=== PATIENT | female | born 1980 | race Caucasian/White ===

== ENCOUNTER 2017-08-25 09:30 | Inpatient (IN) | payer OTHER ==
[2017-09-21 08:03] VITALS: BMI 41.0
[2017-09-21] MEDS ORDERED: CITRIC ACID/SODIUM CITRATE 30 ML UNIT-DOSE CUP PO ONE (08:41)
[2017-09-21] MEDS ORDERED: ELECTROLYTE-148 SOLN 1,000 ML IV SCH (08:45)
--- NOTE | 2017-09-21 08:48 | HP ---
Past Medical History - Primary Care Physician PCP:: Jonas Brewster - Admission Chief Complaint: 39 weeks, previous c/s, sterlization.AMA, obesity History of Present Illness: 36 yo f , 39 weeks, with previous c/s, , request of repeat c/s, and tubal ligation , risks of repeat c/s discussed with patient, aware BTL is permenant and not reversiable, has small failure risks and risks of ectopics, ulternatives explained History Source: Patient Limitations to Obtaining History: No Limitations - Past Medical History ...: 2 ...Para: 1 ...Term: 1 ...: 0 ...Spon : 0 ...Induced : 0 ...Multiple Gestation: 0 ...EDC by Sono: 09/28/17 - Past Surgical History Past Surgical History: Yes: Hx Myomectomy: No Hx Transabdominal Cerclage: No - Smoking History Smoking history: Never smoked Have you smoked in the past 12 months: No - Alcohol/Substance Use Hx Alcohol Use: No - Social History Usual Living Arrangement: Yes: With Spouse History of Recent Travel: No Home Medications - Allergies Allergies/Adverse Reactions: Allergies Allergy/AdvReac Type Severity Reaction Status Date / Time No Known Allergies Allergy Verified 09/21/17 07:48 - Home Medications Home Medications: Ambulatory Orders Vitamins (Sjr) - 1 tab PO DAILY 03/27/13 Ferrous Sulfate [Feosol] 325 mg PO TID 09/21/17 Review of Systems - Review of Systems Constitutional: reports: No Symptoms Eyes: reports: No Symptoms HENT: reports: No Symptoms Neck: reports: No Symptoms Cardiovascular: reports: No Symptoms Respiratory: reports: No Symptoms Gastrointestinal: reports: No Symptoms Genitourinary: reports: No Symptoms Breasts: reports: No Symptoms Reported Musculoskeletal: reports: No Symptoms Integumentary: reports: No Symptoms Neurological: reports: No Symptoms Endocrine: reports: No Symptoms Hematology/Lymphatic: reports: No Symptoms Psychiatric: reports: No Symptoms Physical Exam - Maternity Vital Signs: Vital Signs Temperature 97.8 F 09/21/17 07:30 Pulse Rate 73 09/21/17 07:30 Respiratory Rate 20 09/21/17 07:30 Blood Pressure 138/77 09/21/17 07:30 O2 Sat by Pulse Oximetry (%) Constitutional: Yes: Well Nourished, No Distress, Calm Eyes: Yes: WNL, Conjunctiva Clear, EOM Intact HENT: Yes: WNL, Atraumatic, Normocephalic Neck: Yes: WNL, Supple, Trachea Midline Cardiovascular: Yes: WNL, Regular Rate and Rhythm Breast(s): Yes: WNL - Abdominal Exam/OB Fundal Height: 40 Number of Fetuses: Single Presentation: Vertex Contractions: No Intensity: Unaware Monitor Mode: External Heart Rate Location: [facility] Category: I Accelerations: Uniform Decelerations: None - Vaginal Exam/OB Vaginal Bleediing: No Speculum Exam: No Dilatation (cm): closed Effacement (%): 0 Amniotic Membrane Status: Intact Presentation: Vertex/Position Station: -3 - Physical Exam Musculoskeletal: Yes: WNL Extremities: Yes: WNL Edema: LLE: Trace, RLE: Trace Deep Tendon Reflex Grade: Normal +2 Psychiatric: Yes: WNL Hemorrhage Risk Assessment - Risk Factors Medium Risk Factors: Yes: None High Risk Factors: Yes: None Risk Score: 1 Risk Level: Medium Risk Problem List - Problems (1) with 39 completed weeks gestation Code(s): Z3A.39 - 39 WEEKS GESTATION OF (2) Previous section Code(s): Z98.891 - HISTORY OF UTERINE SCAR FROM PREVIOUS SURGERY (3) Obesity (BMI 35.0-39.9 without comorbidity) Code(s): E66.9 - OBESITY, UNSPECIFIED (4) Sterilization Code(s): Z30.2 - ENCOUNTER FOR STERILIZATION Assessment/Plan repeat c/s and tubal ligation. rba discussed
[2017-09-21] MEDS ORDERED: morphine SULFATE/Preservative Free 0.5 MG/ML (1cc Syringe) ONE (08:53)
[2017-09-21] MEDS ORDERED: EPINEPHrine/PF 1 MG/1 ML (1:1,000) AMPULE ONE (09:07)
[2017-09-21] MEDS ORDERED: ONDANSETRON 4 MG/2 ML VIAL IVPUSH PRN (09:21)
[2017-09-21] MEDS ORDERED: IBUPROFEN 600 MG TABLET (FP) PO PRN (09:21)
[2017-09-21] MEDS ORDERED: OXYTOCIN 10 UNITS/ML VIAL ONE ×2 (09:32→09:33)
[2017-09-21] MEDS ORDERED: ceFAZolin SODIUM 1 GM VIAL ONE ×3 (09:32→17:07)
[2017-09-21] MEDS ORDERED: OXYTOCIN 20 UNITS in 0.9% NS 40 UNIT/2,000 ML INFUS.BAG IV ONE (09:52)
[2017-09-21] MEDS ORDERED: ENOXAPARIN NA (PORCINE) 40 MG/0.4 ML DISP.SYRIN SQ SCH (10:00)
[2017-09-21] MEDS ORDERED: IBUPROFEN 800 MG/8 ML IJ IVPB PRN (10:13)
[2017-09-21] MEDS ORDERED: BENZOCAINE 28 GM HEMORRHOIDAL OINTMENT PR PRN (10:13)
[2017-09-21] MEDS ORDERED: WITCH HAZEL 50% (TUCKS) 40 PAD/JAR PAD TP PRN (10:13)
[2017-09-21] MEDS ORDERED: BENZOCAINE 20% 57 GM BOTTLE TP PRN (10:13)
[2017-09-21] MEDS ORDERED: diphenhydrAMINE HCL 25 MG CAPSULE (FP) PO PRN (10:13)
[2017-09-21] MEDS ORDERED: METHYLERGONOVINE MALEATE 0.2 MG/1 ML AMP IM PRN (10:13)
[2017-09-21] MEDS ORDERED: DEXTROSE 5%-LACTATED RINGERS 1,000 ML IV SCH (10:15)
[2017-09-21] MEDS ORDERED: OXYTOCIN 20 UNITS in 0.9% NS 20 UNIT/1,000 ML INFUS.BAG IV SCH (10:15)
[2017-09-21] MEDS ORDERED: ONDANSETRON 4 MG/2 ML VIAL ONE (11:58)
--- NOTE | 2017-09-21 12:16 | OP ---
DATE OF OPERATION: 09/21/2017 PREOPERATIVE DIAGNOSES: at 39 weeks. Previous section. Voluntary sterilization. Request of repeat section and tubal ligation. POSTOPERATIVE DIAGNOSES: at 39 weeks. Previous section. Voluntary sterilization. Request of repeat section and tubal ligation. PROCEDURES: Repeat low segment transverse section and bilateral tubal ligation. SURGEON: Eboni Claudio MD ENDS DOWN CHECKER: SHELLY Vega ANESTHESIA: Spinal. ANESTHESIOLOGIST: Aguilar Blanc MD ESTIMATED BLOOD LOSS: 500 mL. FINDINGS: A live baby boy, 9 and 9, ROT position. OPERATION: The patient was taken to the operating room and had adequate spinal anesthesia. Abdomen and perineum were prepped and draped. Pfannenstiel abdominal skin incision was made over the previous incision. Abdominal wall was cut [id number]. Anterior peritoneum was exposed and incised. Upon entering the abdominal cavity, lower-uterine segment was identified and uterovesical fold of peritoneum established. Bladder was pushed down. A low transverse incision was made and incision extended laterally. Amniotic sac was entered. Clear fluid. Head delivered from right occiput transverse position. Nasopharynx was suctioned and a live baby boy was delivered without any difficulty. Placenta was delivered manually. Uterine cavity was cleaned of all remaining tissue. Uterine incision was closed in 2 layers, first layer with 0 Biosyn continuous suture, the second layer with 0 Biosyn imbricating the first layer. Bladder flap was closed with 0 Biosyn continuous suture. Both tubes and ovaries were checked were normal. Then, the right tube was grasped with a [place] clamp. Right tube was doubly tagged with 2-0 plain. Portion of tube was removed and endosalpinx was cauterized. The same procedure repeated for opposite tube. All the lap, sponge and instrument counts were correct. Then, peritoneum was closed with 0 Biosyn continuous suture. Muscle was brought together with interrupted suture of 0 Biosyn. Fascia was closed with 0 Biosyn continuous suture, subcutaneous fat with interrupted suture of 0 Biosyn and the skin was closed with josiah. Patient tolerated procedure well. Left the OR in good condition. EBONI CLAUDIO M.D. [id number]
[2017-09-21] MEDS ORDERED: DEXTROSE 5%-WATER - 50 ML IVPB ONE (17:07)
[2017-09-21] MEDS: CEFAZOLIN 1 GM in DEXTROSE 5%-WATER - 50 ML IVPB SCH (17:14)
[2017-09-22] MEDS: CEFAZOLIN 1 GM in DEXTROSE 5%-WATER - 50 ML IVPB SCH (01:22)
[2017-09-22] MEDS: IBUPROFEN 600 MG TABLET (FP) PO PRN ×4 (07:33→22:30)
[2017-09-22] MEDS: SIMETHICONE 80 MG TAB.CHEW (FP) PO PRN ×4 (07:33→22:29)
[2017-09-22] MEDS: ACETAMINOPHEN 325 MG TABLET (FP) PO PRN (07:34)
[2017-09-22 08:42] LABS: BASO % 0.4 % (0-2.0); EOS % 0.6 % (0-4.5); HEMATOCRIT 30.3 % (32.4-45.2); HEMOGLOBIN 10.4 GM/dL (10.7-15.3); LYMPH % 16.1 % (8-40); MCHC 34.4 g/dl (32.0-36.0); MEAN CELL VOLUME 92.9 fl (80-96); MEAN PLT VOLUME 7.8 fl (7.5-11.1); NEUT % 75.9 % (42.8-82.8); PLATELET COUNT 239 K/MM3 (134-434); RBC 3.26 M/mm3 (3.60-5.2); RDW 15.1 % (11.6-15.6); WHITE BLOOD COUNT 9.5 K/mm3 (4.0-10.0)
--- NOTE | 2017-09-22 09:36 | PN ---
Post Progress Note - Subjective Subjective: 36 yo Para 2 status post repeat , seen and evaluated. Doing well. Post Day: 1 Type of Delivery: Repeat C/S Vital Signs: Vital Signs Temperature 98.5 F 09/22/17 05:01 Pulse Rate 76 09/22/17 05:01 Respiratory Rate 18 09/22/17 05:01 Blood Pressure 123/74 09/22/17 05:01 O2 Sat by Pulse Oximetry (%) 100 09/21/17 13:00 Breast Exam: Yes: Soft Uterus: Yes: Fundus Firm Incision: Yes: Dressing dry and intact Abdomen/GI: Yes: Abdomen soft, Tolerating PO Lochia: Yes: Rubra Lochia, amount: Small Extremities: Yes: Calves non-tender Perineum: Yes: Intact Activity: Ambulating - Labs Labs: CBC WBC 9.5 K/mm3 (4.0-10.0) 09/22/17 08:00 RBC 3.26 M/mm3 (3.60-5.2) L 09/22/17 08:00 Hgb 10.4 GM/dL (10.7-15.3) L D 09/22/17 08:00 Hct 30.3 % (32.4-45.2) L 09/22/17 08:00 MCV 92.9 fl (80-96) 09/22/17 08:00 MCH 32.0 pg (25.7-33.7) 09/22/17 08:00 MCHC 34.4 g/dl (32.0-36.0) 09/22/17 08:00 RDW 15.1 % (11.6-15.6) 09/22/17 08:00 Plt Count 239 K/MM3 (134-434) 09/22/17 08:00 MPV 7.8 fl (7.5-11.1) 09/22/17 08:00 Neutrophils % 75.9 % (42.8-82.8) 09/22/17 08:00 Lymphocytes % 16.1 % (8-40) D 09/22/17 08:00 Monocytes % 7.0 % (3.8-10.2) 09/22/17 08:00 Eosinophils % 0.6 % (0-4.5) 09/22/17 08:00 Basophils % 0.4 % (0-2.0) 09/22/17 08:00 Nucleated RBC % 0 % (0-0) 09/22/17 08:00 Assessment/Plan Status post repeat Stable Analgesia as needed Continue post op care
[2017-09-22] MEDS: ENOXAPARIN NA (PORCINE) 40 MG/0.4 ML DISP.SYRIN SQ SCH (09:47)
[2017-09-22] MEDS ORDERED: BISACODYL 10 MG SUPP.RECT PR PRN (10:13)
--- NOTE | 2017-09-22 12:41 | PN ---
Progress Note, Physician Chief Complaint: day #1 s/p csection - Current Medication List Current Medications: Active Medications Acetaminophen (Tylenol -) 650 mg PO Q4H PRN PRN Reason: PAIN LEVEL 1-5 Last Admin: 09/22/17 07:34 Dose: 650 mg Benzocaine (Americaine 20% Corona -) 1 spray TP PRN PRN PRN Reason: Pain - Topical Benzocaine (Americaine Ointment -) 1 applic TN PRN PRN PRN Reason: Pain - Topical Bisacodyl (Dulcolax Suppository -) 10 mg TN PRN PRN PRN Reason: CONSTIPATION Diphenhydramine HCl (Benadryl -) 25 mg PO Q8H PRN PRN Reason: FOR ITCHING Diphtheria/Tetanus/Acell Pertussis (Boostrix -) 0.5 ml IM .ONCE ONE Stop: 09/22/17 10:01 Enoxaparin Sodium (Lovenox -) 40 mg SQ DAILY CALE Last Admin: 09/22/17 09:47 Dose: 40 mg Ibuprofen (Motrin -) 600 mg PO Q4H PRN PRN Reason: PAIN LEVEL 1 - 3 Last Admin: 09/22/17 07:33 Dose: 600 mg Methylergonovine Maleate (Methergine Injection -) 0.2 mg IM Q4H PRN PRN Reason: EXCESSIVE BLEEDING Oxycodone HCl (Roxicodone -) 5 mg PO Q4H PRN PRN Reason: PAIN LEVEL 4 - 6 Oxycodone HCl (Roxicodone -) 10 mg PO Q4H PRN PRN Reason: PAIN LEVEL 7 - 10 Senna/Docusate Sodium (Pericolace -) 2 tablet PO HS PRN PRN Reason: CONSTIPATION Simethicone (Mylicon -) 80 mg PO Q4H PRN PRN Reason: GAS Last Admin: 09/22/17 07:33 Dose: 80 mg Witch Teresa/Glycerin (Tucks Pads -) 1 pad TP PRN PRN PRN Reason: Pain - Topical - Objective Vital Signs: Vital Signs Temperature 98.5 F 09/22/17 05:01 Pulse Rate 76 09/22/17 05:01 Respiratory Rate 18 09/22/17 05:01 Blood Pressure 123/74 09/22/17 05:01 O2 Sat by Pulse Oximetry (%) 100 05/30/18 13:00 Labs: CBC, BMP 09/22/17 08:00 Assessment/Plan doing well, no ROWLEY or back pain or pruritis. Pain well controlled
[2017-09-22] MEDS: oxyCODONE HCL 5 MG TABLET PO PRN ×3 (13:36→22:30)
[2017-09-22] MEDS: SENNOSIDES/DOCUSATE COMBO (SENNA PLUS) TABLET (UD) PO PRN (22:30)
[2017-09-23] MEDS: IBUPROFEN 600 MG TABLET (FP) PO PRN ×3 (04:21→22:23)
[2017-09-23] MEDS: oxyCODONE HCL 5 MG TABLET PO PRN ×3 (04:21→22:24)
[2017-09-23] MEDS: SIMETHICONE 80 MG TAB.CHEW (FP) PO PRN ×3 (04:22→22:23)
--- NOTE | 2017-09-23 06:36 | PN ---
Progress Note (short form) - Note Progress Note: pod 2 s/p repeat c/s doing wel. ambulating CBC, BMP 09/22/17 08:00 Last Vital Signs Temp Pulse Resp BP Pulse Ox 97.8 F 74 18 130/83 100 09/22/17 22:00 09/22/17 22:00 09/22/17 22:00 09/22/17 22:00 09/21/17 13:00 abdomen soft, no distension, no cva , BS present incision dry, clean , healing well no calf tenderness Last Vital Signs Temp Pulse Resp BP Pulse Ox 97.8 F 74 18 130/83 100 09/22/17 22:00 09/22/17 22:00 09/22/17 22:00 09/22/17 22:00 09/21/17 13:00 plan ambulate , advance diet Problem List - Problems (1) with 39 completed weeks gestation Code(s): Z3A.39 - 39 WEEKS GESTATION OF (2) Previous section Code(s): Z98.891 - HISTORY OF UTERINE SCAR FROM PREVIOUS SURGERY (3) Obesity (BMI 35.0-39.9 without comorbidity) Code(s): E66.9 - OBESITY, UNSPECIFIED (4) Sterilization Code(s): Z30.2 - ENCOUNTER FOR STERILIZATION
[2017-09-23] MEDS: ENOXAPARIN NA (PORCINE) 40 MG/0.4 ML DISP.SYRIN SQ SCH (09:15)
[2017-09-23] MEDS ORDERED: DIPHTH,PERTUSS(ACELL),TET 0.5 ML DISP.SYRIN IM ONE (13:00)
[2017-09-23] MEDS: SENNOSIDES/DOCUSATE COMBO (SENNA PLUS) TABLET (UD) PO PRN (22:23)
[2017-09-24 07:34] LABS: BASO % 0.3 % (0-2.0); HEMATOCRIT 29.8 % (32.4-45.2); HEMOGLOBIN 10.3 GM/dL (10.7-15.3); LYMPH % 19.1 % (8-40); MCH 32.5 pg (25.7-33.7); MCHC 34.7 g/dl (32.0-36.0); MEAN CELL VOLUME 93.9 fl (80-96); MEAN PLT VOLUME 7.4 fl (7.5-11.1); MONO % 7.6 % (3.8-10.2); PLATELET COUNT 266 K/MM3 (134-434); RBC 3.17 M/mm3 (3.60-5.2); RDW 15.2 % (11.6-15.6); WHITE BLOOD COUNT 8.1 K/mm3 (4.0-10.0)
--- NOTE | 2017-09-24 07:49 | DS ---
Physical Exam-POSTAL SORTING OFFICER Vital Signs: Vital Signs Temperature 98.7 F 09/23/17 22:00 Pulse Rate 83 09/23/17 22:00 Respiratory Rate 18 09/23/17 22:00 Blood Pressure 109/67 09/23/17 22:00 O2 Sat by Pulse Oximetry (%) 100 09/21/17 13:00 Constitutional: Yes: Well Nourished Eyes: Yes: Conjunctiva Clear HENT: Yes: Atraumatic Neck: Yes: Supple Cardiovascular: Yes: Regular Rate and Rhythm Respiratory: Yes: Regular Gastrointestinal: Yes: Normal Bowel Sounds Pelvis: Yes: WNL External Genitalia: Yes: Normal Vaginal Exam: Yes: Normal Cervix: Yes: Normal Uterus: Yes: Firm Wound/Incision: Yes: Clean/Dry Neurological: Yes: Alert, Oriented ...Motor Strength: WNL Psychiatric: Yes: Alert, Oriented Labs: CBC, BMP 09/24/17 06:30 Delivery - Delivery Type of Anesthesia: Spinal Episiotomy/Laceration: None EBL (cc): 500 Delivery, Single - Stages of Labor Date of Delivery: 09/21/17 Time of Delivery: 09:33 Time Placenta Delivered: 09:34 - Condition of Infant Photostat Operator/Senior Sql Developer Present: Yes Name: Monica Parsons Infant Gender: Male Weight: 9 lb 5 oz Position: Right, OT Total Hours ROM (Hrs/Mins): 0hrs 2min - 1 Minute Total Score: 9 5 Minutes Total Score: 9 - Feeding Plan Initial Plan: Elected not to breastfeed exclusively throughout hospitalization Discharge Summary Reason For Visit: C/SECTION Current Active Problems Obesity (BMI 35.0-39.9 without comorbidity) (Acute) with 39 completed weeks gestation (Acute) Previous section (Acute) Sterilization (Acute) Procedures: Principal: Repeat Low Transverse Hospital Course: Routine Post op care Condition: Good - Instructions Diet, Activity, Other Instructions: Regular diet No driving, no lifting x 4 weeks F/U in clinic in 1 week Disposition: HOME - Home Medications Comprehensive Discharge Medication List: Ambulatory Orders Vitamins (Sjr) - 1 tab PO DAILY 03/27/13 Ferrous Sulfate [Feosol] 325 mg PO TID 09/21/17
[2017-09-24] MEDS: IBUPROFEN 600 MG TABLET (FP) PO PRN (10:10)
[2017-09-24] MEDS: ACETAMINOPHEN 325 MG TABLET (FP) PO PRN (10:10)
[2017-09-24] MEDS: SIMETHICONE 80 MG TAB.CHEW (FP) PO PRN (10:11)
[2017-09-24] MEDS: ENOXAPARIN NA (PORCINE) 40 MG/0.4 ML DISP.SYRIN SQ SCH (10:11)
[2017-09-24 12:30] VITALS: BP 133/82; PULSE 88; TEMP 98.1
--- NOTE | 2017-09-30 11:36 | PATH ---
Surgical Pathology Report Patient Name: JUDE CANNON [facility]. Rec. 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 Specimen(s) Received A: PLACENTA B: PORTION OF LEFT FALLOPIAN TUBE C: PORTION OF RIGHT FALLOPIAN TUBE Clinical History section Final Diagnosis A. PLACENTA, DELIVERY: FOCALLY DISRUPTED THIRD TRIMESTER PLACENTA WITH THREE VESSEL UMBILICAL CORD AND UNREMARKABLE PLACENTAL MEMBRANES. B. LEFT FALLOPIAN TUBE, PARTIAL EXCISION: FULL LUMINAL PORTION OF UNREMARKABLE FALLOPIAN TUBE. C. RIGHT FALLOPIAN TUBE, PARTIAL EXCISION: FULL LUMINAL PORTION OF UNREMARKABLE FALLOPIAN TUBE. Electronically Signed Santos Avila M.D. Gross Description A. The specimen is received fresh labeled placenta and is a 619 gram, 18.5 x 15 x 3 cm. placenta with attached membranes and umbilical cord. The attached membranes are glistening and translucent and insert marginally. The umbilical cord measures 42 cm. in length and averages 1.3 cm. in diameter. The cord inserts eccentrically, 3 cm. to the nearest margin. No true knots or strictures are identified. Cut surface of the umbilical cord reveals 3 vessels. The surface is levine-blue with minimal fibrin deposition and appropriate caliber vessels. The maternal surface is red-brown with focal defects. Sectioning reveals red-brown, spongy parenchyma. No lesions are identified. Refueler sections are submitted in three cassettes as follows: 1- membrane rolls and umbilical cord; 2-3- full thickness sections of placenta. B. Received fresh labelled "portion of left fallopian tube" is a 1.4 cm long by 0.6 cm in diameter portion of tissue consistent with a portion of fallopian tube. The fimbriated end is not identified. No focal lesions are identified. Sectioned and totally submitted in one cassette. C. Received fresh labelled "portion of right fallopian tube" is a 1.5 cm long by 0.5 cm in diameter portion of tissue consistent with a portion of fallopian tube. The fimbriated end is not identified. No focal lesions are identified. Sectioned and totally submitted in one cassette. JADA/09/29/2017 [facility]/09/29/2017
== END 2017-09-24 10:45 | disposition home or self-care (01) | DRG 540 ==
LOC: JLDR 09-21 07:15 → J3W 09-21 13:45
PROVIDERS: ADMIT Obstetrics & Gynecology; ATTEND Obstetrics & Gynecology
PROC: 10D00Z1 Extraction of Products of Conception, Low, Open Approach (ICD-10-PCS; principal; 2017-09-21)
PROC: 0UL70ZZ Occlusion of Bilateral Fallopian Tubes, Open Approach (ICD-10-PCS; 2017-09-21)
DX: O34.211 Maternal care for low transverse scar from previous cesarean delivery (principal); O99.214 Obesity complicating childbirth; E66.9 Obesity, unspecified; Z30.2 Encounter for sterilization; Z68.41 Body mass index [BMI] 40.0-44.9, adult; Z3A.39 39 weeks gestation of pregnancy; Z37.0 Single live birth
CPT/HCPCS: 36415; 85025; 88302-TC; 88307-TC; 90715